=== PATIENT | female | born 1960 | race Hispanic/Latino ===

== ENCOUNTER 2021-04-30 09:42 | Emergency (ER) | payer BC ==
--- OUTSIDE RECORDS SUMMARY | 2021-04-30 09:47 | XMS REPORT | Continuity of Care Document ---
:1960 Author Organization [facility] t Address [address] [place] [address] [address] [place] [address] Care Team Providers Name Role Phone QAMAR GARCIA Primary Care Physician Unavailable QAMAR GARCIA Attending Clinician Unavailable Keith VERA, Qamar Attending Clinician Payers Payer Name Policy Type Policy Number Effective Date Expiration Date S ource [facility] [place] [facility] - [id number] 2021 00:00:00 OUT OF STATE Problems Condition Condition Condition Status Onset Resolution Last Treating Co mments Source Name Details Category Date Date Treatment Clinician Date Type 2 Type 2 Disease Active Univers diabetes diabetes 4-15 ity of mellitus mellitus 00:00: [place] without without 00 Medical complicati complicati Br anch on, on, without without long-term long-term current current use of use of insulin insulin Chronic Chronic Disease Active 2016-03 Univers midline midline 0-19 ity of low back low back 00:00: [place] pain with pain with 00 Medi nette left-sided left-sided Br anch sciatica sciatica Psoriasis Psoriasis Disease Active 2014-03 Uni vers 1-04 ity of 00:00: [place] 00 Medical Branch Allergic Allergic Disease Active 2014-03 Unive rs rhinitis rhinitis 1-04 ity of 00:00: [place] 00 Medical Branch Allergies, Adverse Reactions, Alerts Allergy Allergy Status Severity Reaction(s) Onset Inactive Treating Comm ents Source Name Type Date Date Clinician PAROXETI DRUG Active Unknown-Cmnt 2014-03 Un [place] NE HCL INGREDI 0-14 ity of 00:00: [place] 00 Medical Branch SULFA Drug Active Unknown-Cmnt 2014-03 Univ ers (SULFONA Class 0-14 ity of MIDE 00:00: [place] ANTIBIOT 00 Medical ICS) Branch TRAMADOL DRUG Active Unknown-Cmnt 2014-03 [facility] [place] HCL INGREDI 0-14 ity of 00:00: [place] 00 Medical Branch Tramadol Propensi Active Unknown - 2014-03 Uni vers Hcl ty to See comments 0-14 ity of adverse 00:00: [place] reaction 00 Medical s Branch Paroxeti Drug Active Unknown - 2014-03 Unive rs ne Hcl Allergy See comments 0-14 ity of 00:00: [place] 00 Medical Branch Sulfa Drug Active Anaphylaxis 2014-03 Unive rs (Sulfona Allergy 0-14 ity of mide 00:00: [place] Antibiot 00 Medical ics) Branch Tramadol Drug Active Unknown - "felt Unive rs Allergy See comments drunk" ity of [facility] TRAMADOL DRUG Active Unknown-Cmnt [place] INGREDI ity of [facility] Social History Social Habit Start Date Stop Date Quantity Comments Source History SDOH University o f Alcohol Std [place] [facility] Drinks Branch History SDHI University o f Alcohol Binge [place] [facility] al Branch History [facility] University o f Alcohol Comment [place] Med ical Branch Exposure to Not sure University of SARS-CoV-2 [facility] (event) Branch Alcohol intake 2021-04-17 2021-04-17 Ex-drinker University of 00:00:00 00:00:00 (finding) [facility] History SDOH 2021-03-09 2021-03-09 1 University o f Alcohol Frequency 00:00:00 00:00:00 [facility] edical Branch History of 2014-05-23 Cigarette Smoker Univers ty of tobacco use 00:00:00 [facility] Sex Ass[birth year] At [birth year] Universit y of 00:00:00 00:00:00 [facility] Smoking Status Start Date Stop Date Source Former smoker 2020-07-11 00:00:00 2020-07-11 00:00:00 [facility] Medications Ordered Filled Start Stop Current Ordering Indication Dosage Frequency Signature Comments Components Source Medication Medication Date Date Medication? Clinician (SIG) Name Name elliejs Yes [id number] Apply to Univers e 0.05 % 2-07 area(s) 2 ity of cream 00:00: (two) [place] 00 times Medical daily. Branch triamterene Yes [id number] 1{capsu Take 1 Univers -hydrochlor 2-07 le} capsule by it y of othiazide 00:00: mouth [place] 37.5-25 mg 00 every Medical per capsule morning. Edmundo metFORMIN 2021-0 Yes [id number] 500mg Take 1 Univers 500 mg 2-07 tablet by ity of tablet 00:00: mouth 2 [place] 00 (two) Medical times Branch daily with meals. HYDROcodone 0 Yes [id number] 1{tbl} Take 1 Un [place] -acetaminop 2-07 tablet by ity of hen 10-325 00:00: mouth [place] mg tablet 00 every 6 Medical (six) Branch hours as needed for Pain (scale 4-6). Indication s: chronic pain ibuprofen Yes [id number] TAKE 1 U nivers 800 mg 2-07 TABLET BY ity of tablet 00:00: MOUTH [place] 00 EVERY 6 Medical HOURS Branch NEEDED FOR PAIN( SCALE 4 TO 6) fluocinonid Yes [id number] Apply to Univers e 0.05 % 2-07 area(s) 2 ity of cream 00:00: (two) [place] 00 times Medical daily. Branch triamterene Yes [id number] 1{capsu Take 1 Univers -hydrochlor 2-07 le} capsule by it y of othiazide 00:00: mouth [place] 37.5-25 mg 00 every Medical per capsule morning. Edmundo metFORMIN 2021-0 Yes [id number] 500mg Take 1 Univers 500 mg 2-07 tablet by ity of tablet 00:00: mouth 2 [place] 00 (two) Medical times Branch daily with meals. HYDROcodone Yes [id number] 1{tbl} Take 1 Un [place] -acetaminop 2-07 tablet by ity of hen 10-325 00:00: mouth [place] mg tablet 00 every 6 Medical (six) Branch hours as needed for Pain (scale 4-6). Indication s: chronic pain ibuprofen Yes [id number] TAKE 1 U nivers 800 mg 2-07 TABLET BY ity of tablet 00:00: MOUTH [place] 00 EVERY 6 Medical HOURS Branch NEEDED FOR PAIN( SCALE 4 TO 6) fluocinonid Yes [id number] Apply to Univers e 0.05 % 2-07 area(s) 2 ity of cream 00:00: (two) [place] 00 times Medical daily. Branch triamterene Yes [id number] 1{capsu Take 1 Univers -hydrochlor 2-07 le} capsule by it y of othiazide 00:00: mouth [place] 37.5-25 mg 00 every Medical per capsule morning. Bran ch metFORMIN Yes [id number] 500mg Take 1 Univers 500 mg 2-07 tablet by ity of tablet 00:00: mouth 2 [place] 00 (two) Medical times Branch daily with meals. HYDROcodone Yes [id number] 1{tbl} Take 1 Un [place] -acetaminop 2-07 tablet by ity of hen 10-325 00:00: mouth [place] mg tablet 00 every 6 Medical (six) Branch hours as needed for Pain (scale 4-6). Indication s: chronic pain ibuprofen Yes [id number] TAKE 1 U nivers 800 mg 2-07 TABLET BY ity of tablet 00:00: MOUTH [place] 00 EVERY 6 Medical HOURS Branch NEEDED FOR PAIN( SCALE 4 TO 6) fluocinonid Yes [id number] Apply to Univers e 0.05 % 2-01 area(s) 2 ity of cream 00:00: (two) [place] 00 times Medical daily. Branch fluocinonid Yes [id number] Apply to Univers e 0.05 % 2-01 area(s) 2 ity of cream 00:00: (two) [place] 00 times Medical daily. Branch fluocinonid Yes [id number] Apply to Univers e 0.05 % 2-01 area(s) 2 ity of cream 00:00: (two) [place] 00 times Medical daily. [place] Immunizations Ordered Filled Immunization Date Status Comments [facility] e Immunization Name Name Zoster Vaccine 2020-01-27 Completed [facility] 00:00:00 [facility] Zoster Vaccine 2020-01-27 Completed [employer] 00:00:00 [facility] Zoster Vaccine 2020-01-27 Completed [employer] 00:00:00 [facility] Procedures This patient has no known procedures. Encounters Start End Encounter Admission Attending Care Care Encounter Source Date/Time Date/Time Type Type Clinicians Facility Department ID 2021-05-24 2021-05-24 Outpatient DOMO COSMEMB [facility] [id number] Univers 00:00:00 00:00:00 QAMAR [id number] [facility] 2021-04-26 2021-04-26 Outpatient Mindi GARCIA [facility] [id number] Univers 15:15:00 15:15:00 QAMAR [id number] [facility] 2021-04-26 2021-04-26 Outpatient Mindi GARCIA [facility] [id number] Univers 15:15:00 15:15:00 QAMAR [facility] 2021-04-24 2021-04-24 [place] [facility] [id number] Univers 00:00:00 00:00:00 Qamar HEALTH [id number] it y of [place] [id number] [place] as NAT?BLEA [id number] [address] OFFICE [facility] 2021-04-19 2021-04-19 [facility] [id number] Univers 00:00:00 00:00:00 Qamar HEALTH [id number] it y of [place] [id number] [place] as NAT?BLEA [id number] [address] OFFICE [facility] 2021-04-18 2021-04-18 [facility] [id number] Univers 00:00:00 00:00:00 Qamar HEALTH [id number] it y of [place] [id number] [place] as NAT?BLEA [id number] [address] Results This patient has no known results.
[2021-04-30] MEDS ORDERED: KETOROLAC 30 MG/ML INJ ONE (10:39)
[2021-04-30] MEDS ORDERED: DIAZEPAM 5 MG TABLET ONE (10:39)
[2021-04-30] MEDS ORDERED: LIDOCAINE 4% PATCH ONE ×2 (10:40→11:39)
--- NOTE | 2021-04-30 11:35 | ER ---
Nurse's Notes [facility] Name: [place] Quan Age: 61 yrs Sex: Female : 1960 Arrival Date: 04/30/2021 Time: 09:47 Bed 12 Private MD: Shiva Parker S Diagnosis: Lumbago with sciatica, left side Presentation: 04/30 10:12 Chief complaint: Patient states: Lower back pain that started Saturday radiating down to ww left leg with a burning sensation. Coronavirus screen: Vaccine status: Patient reports being unvaccinated. Client denies travel out of the [place] in the last 14 days. Ebola Screen: Patient denies travel to an Ebola-affected area in the 21 days before illness onset. Initial Sepsis Screen: Does the patient meet any 2 criteria? No. Patient's initial sepsis screen is negative. Does the patient have a suspected source of infection? No. Patient's initial sepsis screen is negative. Risk Assessment: Do you want to hurt yourself or someone else? Patient reports no desire to harm self or others. Onset of symptoms was April 28, 2021. 10:12 Method Of Arrival: Ambulatory ww 10:12 Acuity: CHIN 4 ww Triage Assessment: 10:14 General: Appears in no apparent distress. Behavior is calm, cooperative, appropriate ww for age. Pain: Complains of pain in coccyx, left lower back, right lower back and left gluteus travis. EENT: No signs and/or symptoms were reported regarding the EENT system. Neuro: Level of Consciousness is awake, alert, obeys commands, Oriented to person, place, time, situation, Gait is steady, Speech is normal. Cardiovascular: Capillary refill. Respiratory: Airway is patent Respiratory effort is even, unlabored, Respiratory pattern is regular, symmetrical. GI: No signs and/or symptoms were reported involving the gastrointestinal system. : Reports cramping. Derm: Skin is healthy with good turgor, Skin is pink, warm \T\ dry. Musculoskeletal: Circulation, motion, and sensation intact. Historical: - Allergies: 10:14 Sulfa (Sulfonamide Antibiotics); ww - Home Meds: 10:14 metformin 500 mg oral tr24 1 tab 2 times per day [Active]; ww - PMHx: 10:14 Diabetes - NIDDM; Hypertension; ww - PSHx: 10:14 None; ww - Immunization history:: Flu vaccine is not up to date. - Social history:: Smoking status: Patient denies any tobacco usage or history of. Screenin:16 Abuse screen: Denies threats or abuse. Denies injuries from another. Nutritional ww screening: No deficits noted. Tuberculosis screening: No symptoms or risk factors identified. Fall Risk None identified. Assessment: 10:17 General: Appears in no apparent distress. uncomfortable, Behavior is calm, cooperative, ab2 appropriate for age. Pain: Complains of pain in back Pain radiates to buttocks Pain currently is 10 out of 10 on a pain scale. Neuro: Level of Consciousness is awake, alert, obeys commands, Oriented to person, place, time, situation, Appropriate for age Historical Site Guide are equal bilaterally Moves all extremities. Gait is steady, Speech is normal, Facial symmetry appears normal. Cardiovascular: No deficits noted. Denies chest pain, shortness of breath, Patient's skin is warm and dry. Respiratory: No deficits noted. Airway is patent Respiratory effort is even, unlabored, Respiratory pattern is regular, symmetrical. GI: No deficits noted. No signs and/or symptoms were reported involving the gastrointestinal system. : No deficits noted. No signs and/or symptoms were reported regarding the genitourinary system. EENT: No deficits noted. No signs and/or symptoms were reported regarding the EENT system. Derm: No deficits noted. No signs and/or symptoms reported regarding the dermatologic system. Skin is intact, is healthy with good turgor, Skin is pink, warm \T\ dry. Musculoskeletal: Reports pain in back. 11:38 Reassessment: Patient appears in no apparent distress at this time. Patient states ab2 medications helped and Reed VIDES stretching patient seemed to really help. Patient states feeling better. Patient states symptoms have improved. Vital Signs: 10:12 BP 153 / 91; Pulse 79; Resp 18; Temp 98.0; Pulse Ox 98% on R/A; Weight 77.11 kg; Height ww 5 ft. 5 in. (165.10 cm); Pain 10/10; 11:43 BP 146 / 84; Pulse 80; Resp 16; Pulse Ox 99% on R/A; ab2 10:12 Body Mass Index 28.29 (77.11 kg, 165.10 cm) ww ED Course: 09:47 Patient arrived in ED. mr 09:47 Shiva Parker MD is Private Physician. mr 10:13 Triage completed. ww 10:14 Arm band placed on right wrist. ww 10:17 Reed Hernandez NP is PHCP. pm1 10:17 Jamie Guerrier MD is Attending Physician. pm1 10:17 Gerald Rust is Primary Nurse. ab2 10:18 No provider procedures requiring assistance completed. ab2 10:19 Patient has correct armband on for positive identification. Bed in low position. Call ab2 light in reach. Side rails up X2. 11:43 Patient did not have IV access during this emergency room visit. ab2 Administered Medications: 10:43 Drug: Lidoderm Patch 5 % (700 mg/patch) 1 patches Route: Topical; Site: affected area; ab2 11:44 Follow up: Response: No adverse reaction ab2 10:43 Drug: Ketorolac 30 mg Route: IM; Site: left deltoid; ab2 11:44 Follow up: Response: No adverse reaction ab2 10:43 Drug: Valium (diazepam) 2 mg Route: PO; ab2 11:44 Follow up: Response: No adverse reaction ab2 11:37 Drug: Lidoderm Patch 5 % (700 mg/patch) 1 patches Route: Topical; Site: affected area; ab2 11:43 Follow up: Response: No adverse reaction ab2 Outcome: 11:34 Discharge ordered by MD. pm1 11:43 Discharged to home ambulatory, with significant other. ab2 11:43 Condition: good 11:43 Discharge instructions given to patient, family, Instructed on discharge instructions, follow up and referral plans. medication usage, Demonstrated understanding of instructions, follow-up care, medications, Prescriptions given X 3. 11:44 Patient left the ED. ab2 Signatures: Juan Tori mr Reed Hernandez NP SR RISK MANAGEMENT CONSULTANT pm1 Danyell Falcon RN RN ww Gerald Rust ab2
--- NOTE | 2021-04-30 11:36 | EDPHYS ---
Physician Documentation [facility] Name: [place] Quan Age: 61 yrs Sex: Female : 1960 Arrival Date: 04/30/2021 Time: 09:47 Bed 12 Private MD: Shiva Parker S ED Physician Jamie Guerrier HPI: 04/30 10:43 This 61 yrs old Female presents to ER via Ambulatory with complaints of Back pm1 Pain. 10:43 The patient presents with pain that is acute. The symptoms are located in the left low pm1 back and left gluteus travis. Onset: The symptoms/episode began/occurred 3 day(s) ago. Location: left leg. Associated signs and symptoms: Pertinent negatives: abdominal pain, chest pain, dysuria, fever, nausea, vomiting, weakness. The problem was sustained after pushing heavy potted plants around. Modifying factors: The patient symptoms are alleviated by nothing, the patient symptoms are aggravated by sitting. movement and walking. Severity of symptoms: in the emergency department the symptoms are unchanged. The patient has not experienced similar symptoms in the past. The patient has not recently seen a physician. Historical: - Allergies: 10:14 Sulfa (Sulfonamide Antibiotics); ww - Home Meds: 10:14 metformin 500 mg oral tr24 1 tab 2 times per day [Active]; ww - PMHx: 10:14 Diabetes - NIDDM; Hypertension; ww - PSHx: 10:14 None; ww - Immunization history:: Flu vaccine is not up to date. - Social history:: Smoking status: Patient denies any tobacco usage or history of. ROS: 10:43 Constitutional: Negative for fever, chills, and weight loss, Cardiovascular: Negative pm1 for chest pain, palpitations, and edema, Respiratory: Negative for shortness of breath, cough, wheezing, and pleuritic chest pain. 10:43 : Negative for injury, bleeding, discharge, and swelling, MS/Extremity: Negative for injury and deformity, Skin: Negative for injury, rash, and discoloration, Neuro: Negative for headache, weakness, numbness, tingling, and seizure. 10:43 Back: Positive for flank pain, on the left. 10:43 All other systems are negative. Exam: 10:43 Constitutional: This is a well developed, well nourished patient who is awake, alert, pm1 and in no acute distress. Head/Face: Normocephalic, atraumatic. 10:43 Skin: Warm, dry with normal turgor. Normal color with no rashes, no lesions, and no evidence of cellulitis. MS/ Extremity: Pulses equal, no cyanosis. Neurovascular intact. Full, normal range of motion. 10:43 Cardiovascular: Exam negative for acute changes, Rate: normal, Rhythm: regular, Pulses: no pulse deficits are appreciated. 10:43 Respiratory: Exam negative for acute changes, respiratory distress, shortness of breath. 10:43 Abdomen/GI: Exam negative for acute changes. 10:43 Back: vertebral tenderness, is not appreciated, muscle spasm, is appreciated in the left low back and left gluteus travis. 10:43 Neuro: Exam negative for acute changes, Orientation: is normal, Mentation: is normal, Motor: is normal, moves all fours. Vital Signs: 10:12 BP 153 / 91; Pulse 79; Resp 18; Temp 98.0; Pulse Ox 98% on R/A; Weight 77.11 kg; Height ww 5 ft. 5 in. (165.10 cm); Pain 10/10; 11:43 BP 146 / 84; Pulse 80; Resp 16; Pulse Ox 99% on R/A; ab2 10:12 Body Mass Index 28.29 (77.11 kg, 165.10 cm) ww MDM: 10:30 Patient medically screened. pm1 10:59 Data reviewed: vital signs. Data interpreted: Pulse oximetry: on room air is 98 %. pm1 Interpretation: normal. 11:25 ED course: Patient requested another Lidoderm patch in another area of pain since the pm1 current patch was helping. 11:25 Counseling: I had a detailed discussion with the patient and/or guardian regarding: the pm1 historical points, exam findings, and any diagnostic results supporting the discharge/admit diagnosis, the need for outpatient follow up, to return to the emergency department if symptoms worsen or persist or if there are any questions or concerns that arise at home. 11:33 ED course: Educated the patient on stretching techniques and performed them on the pm1 patient. Patient reports significant improvement in her pain and ability to situp and walking. 11:39 ED course: Valium and medications given in the ER effective in reducing the patient pm1 pain. Instructed the patient not to take hydrocodone and Valium on the same day. Patient and understand. The patient last took hydrocodone yesterday. PMPAware reviewed. Administered Medications: 10:43 Drug: Lidoderm Patch 5 % (700 mg/patch) 1 patches Route: Topical; Site: affected area; ab2 11:44 Follow up: Response: No adverse reaction ab2 10:43 Drug: Ketorolac 30 mg Route: IM; Site: left deltoid; ab2 11:44 Follow up: Response: No adverse reaction ab2 10:43 Drug: Valium (diazepam) 2 mg Route: PO; ab2 11:44 Follow up: Response: No adverse reaction ab2 11:37 Drug: Lidoderm Patch 5 % (700 mg/patch) 1 patches Route: Topical; Site: affected area; ab2 11:43 Follow up: Response: No adverse reaction ab2 Disposition Summary: 04/30/21 11:34 Discharge Ordered Location: Home pm1 Problem: new pm1 Symptoms: have improved pm1 Condition: Stable pm1 Diagnosis - Lumbago with sciatica, left side pm1 Followup: pm1 - With: Emergency Department - When: As needed - Reason: Worsening of condition Followup: pm1 - With: Private Physician - When: 2 - 3 days - Reason: Recheck today's complaints, Continuance of care, Re-evaluation by your physician Discharge Instructions: - Discharge Summary Sheet pm1 - Muscle Strain pm1 - Sciatica pm1 - Back Injury Prevention pm1 Forms: - Medication Reconciliation Form pm1 - Thank You Letter pm1 - Antibiotic Education pm1 - Prescription Opioid Use pm1 Prescriptions: - Valium 2 mg Oral Tablet - take 1 tablet by ORAL route every 8 hours As needed; 10 tablet; Refills: 0, pm1 Product Selection Permitted - Lidoderm 5 % Topical adhesive patch,medicated - apply 1 patch by TRANSDERMAL route once daily As needed 12 hours on and 12 pm1 hours off in a 24 hour period; 10 patch; Refills: 0, Product Selection Permitted - Diclofenac Sodium 75 mg Oral tablet,delayed release (DR/EC) - take 1 tablet by ORAL route every 12 hours As needed; 30 tablet; Refills: 0, pm1 Product Selection Permitted Addendum: 05/03/2021 23:10 Co-signature as Attending Physician, Jamie Guerrier MD. r n Signatures: Dispatcher [employer] EDKS Jamie Guerrier MD MD rn Reed Hernandez, HOME HEALTH CLINICAL SUPERVISOR HOME HEALTH CLINICAL SUPERVISOR pm1 Danyell Falcon RN RN Gerald Quinn ab2 Corrections: (The following items were deleted from the chart) 04/30 10:59 10:31 Lumbar Spine 3 Views+[email or web address] ordered. EDMS EDMS 11:26 11:25 ED course: Patient requested another lidoderm patch. pm1 pm1
[2021-04-30 12:06] VITALS: TEMP 98
[2021-04-30 12:08] VITALS: BP 146/84; O2SAT 99
== END 2021-04-30 11:44 | disposition home or self-care (01) ==
LOC: ER 09:42
DX: M54.42 Lumbago with sciatica, left side (principal); I10 Essential (primary) hypertension; E11.9 Type 2 diabetes mellitus without complications; Z88.2 Allergy status to sulfonamides
CPT/HCPCS: 96372; 99283